=== PATIENT | male | born 1995 ===

== ENCOUNTER 2016-08-12 12:25 | Emergency (ER) | payer BC, OTHER ==
--- NOTE | 2016-08-12 12:53 | UC ---
Ear Complaint HPI - HPI Summary HPI Summary: complaint of right ear pain that started approx 1.5 weeks ago nasal congestion and cough started then but resolving headache occasionally hx of excess earwax buildup feels like there is water in his ear takes ibuprofen with relief of ear pain denies fever, sore throat - History of Current Complaint Stated Complaint: EAR ACHE Time Seen by Provider: 08/12/16 12:48 Hx Obtained From: Patient Aggravating Factors: Nothing Alleviating Factors: OTC Meds - Allergies/Home Medications Allergies/Adverse Reactions: Allergies Allergy/AdvReac Type Severity Reaction Status Date / Time No Known Allergies Allergy Verified 08/12/16 12:51 PMH/Surg Hx/FS Hx/Imm Hx Previously Healthy: Yes - exercise induced asthma - Family History Known Family History: Negative: Cardiac Disease, Hypertension, Diabetes - Social History Occupation: Unemployed Review of Systems Constitutional: Negative Skin: Negative Eyes: Negative ENT: Ear Ache, Nasal Discharge Respiratory: Cough Cardiovascular: Negative Gastrointestinal: Negative Genitourinary: Negative Motor: Negative Neurovascular: Negative Musculoskeletal: Negative Neurological: Negative Psychological: Negative All Other Systems Reviewed And Are Negative: Yes Physical Exam Triage Information Reviewed: Yes Appearance: No Pain Distress, Well-Nourished Vital Signs Reviewed: Yes Eyes: Positive: Conjunctiva Clear ENT: Positive: Pharynx normal, Nasal congestion, Nasal drainage, Other: - TM's not visualized d/t impacted cerumen on both ears Neck: Positive: No Lymphadenopathy Respiratory: Positive: Lungs clear, Normal breath sounds, No respiratory distress Cardiovascular: Positive: RRR, No Murmur Abdomen Description: Positive: Nontender, Soft Bowel Sounds: Positive: Present Musculoskeletal: Positive: No Edema Neurological: Positive: Alert Psychological Exam: Normal Skin Exam: Normal Re-Evaluation - Re-Evaluation First Eval Change: Improved - cerumen removed from both ears Right ear canal edema and erythema Ear Complaint Course/Dx - Differential Dx/Diagnosis Differential Diagnosis/HQI/PQRI: Cerumen Impaction, Otitis Externa, Otitis Media Provider Diagnoses: cerumen impaction, right otitis externa Discharge - Discharge Plan Condition: Stable Disposition: HOME Prescriptions: Ciproflox/Dexameth OTIC.SUSP* [Ciprodex OTIC.SUSP*] 1 drop .SEE ORDER BID #1 [id number] Patient Education Materials: Otitis Externa (ED), Cerumen Impaction (ED) Referrals: [facility] [Outside] Additional Instructions: Please start antibiotic ear drops as directed. Increase fluids and rest Take acetaminophen for fever or pain Please review your discharge instructions. If your symptoms do not improve please call your primary care provider or return to urgent care.
== END 2016-08-12 13:35 | disposition home or self-care (01) ==
LOC: UCEAST 12:25
DX: H61.23 Impacted cerumen, bilateral (principal); H60.91 Unspecified otitis externa, right ear
CPT/HCPCS: 99202; G0463